=== PATIENT | male | born 1930 | race Caucasian/White ===

== ENCOUNTER 2017-07-18 13:13 | Inpatient (IN) | payer MEDICARE, OTHER ==
[~2017-07-18] VITALS: Ht 182.9 cm; Wt 75.0 kg
[~2017-07-18 13:13] MED LIST: CELE200C PO; CLON-529 PO; NIFE10CA2 PO; SCOP TD; ZOF4T PO; [UNRECOGNIZED DRUG - CODE] PO; [UNRECOGNIZED DRUG - CODE] PO
[2017-07-18] MEDS ORDERED: aspirin 81mg tab.chew PO ONE (13:25)
[2017-07-18] MEDS ORDERED: normal saline 1000ML IV soln IV ONE (13:35)
[2017-07-18] MEDS ORDERED: aspirin 81mg tab.chew ONE (13:45)
[2017-07-18] MEDS ORDERED: diltiazem-NS 100mg/100ml 100 ML IV ONE (13:48)
[2017-07-18] MEDS ORDERED: diltiazem 30mg tablet PO ONE (13:50)
[2017-07-18 14:13] LABS: BASOPHILS % (AUTO) 0.2 % (0-1); EOSINOPHILS % (AUTO) 0.3 % (0-6); HEMATOCRIT 42.2 % (42.0-52.0); HEMOGLOBIN 14.5 g/dl (14.0-17.9); LYMPHOCYTES # (AUTO) 0.7 X10'3 (1.1-4.8); LYMPHOCYTES % (AUTO) 9.5 % (21-51); MEAN CORPUSCULAR HEMOGLOBIN 34.1 PG (27.0-31.0); MEAN CORPUSCULAR HGB CONC 34.4 % (33.0-36.5); MEAN PLATELET VOLUME 9.8 FL (7.4-10.4); MONOCYTES # (AUTO) 0.5 X10'3 (0-0.9); MONOCYTES % (AUTO) 7.1 % (2-12); NEUTROPHILS # (AUTO) 6.2 X10'3 (1.8-7.7); NEUTROPHILS % (AUTO) 82.9 % (42-75); PLATELET COUNT 179 X10'3 (140-440); RED BLOOD COUNT 4.26 X10'6 (4.70-6.10); WHITE BLOOD COUNT 7.5 X10'3 (4.5-11.0)
[2017-07-18] MEDS ORDERED: metoprolol tartrate 1mg/ml inj IV ONE (14:30)
[2017-07-18 14:38] LABS: ANION GAP 13 (8-16); BILIRUBIN,TOTAL 1.4 MG/DL (0.1-1.0); BLOOD UREA NITROGEN 44 MG/DL (7-18); BUN/CREATININE RATIO 25.3 (5.4-32.0); CALCIUM 8.7 MG/DL (8.5-10.1); CHLORIDE 107 MMOL/L (99-107); CREATININE 1.74 MG/DL (0.60-1.10); GLUCOSE 104 MG/DL (70-104); MAGNESIUM 2.2 MG/DL (1.5-2.4); POTASSIUM 4.6 MMOL/L (3.5-5.1); SODIUM 142 MMOL/L (135-145); TOTAL CARBON DIOXIDE 21.9 MMOL/L (24-32); TOTAL PROTEIN 6.1 G/DL (6.4-8.2); eGFR 37 ML/MIN
[2017-07-18 14:39] LABS: ALANINE AMINOTRANSFERASE 66 U/L (12-78); ALBUMIN 2.6 G/DL (3.4-5.0); ALBUMIN/GLOBULIN RATIO 0.7 (1.1-1.5); ALKALINE PHOSPHATASE 96 IU/L (46-116); ASPARTATE AMINO TRANSFERASE 49 U/L (10-37)
[2017-07-18] MEDS ORDERED: ALPRAZolam 0.25mg tablet PO ONE (15:30)
[2017-07-18] MEDS ORDERED: LORazepam 2 mg/ml vial IV ONE (15:45)
[2017-07-18] MEDS ORDERED: LORazepam 2 mg/ml vial ONE (15:47)
[2017-07-18] MEDS ORDERED: OLANZapine **IM** 10 mg inj. IM ONE (16:10)
[2017-07-18] MEDS ORDERED: magnesium 2GM in 50ml NS 50 ML IV PRN (16:20)
[2017-07-18] MEDS ORDERED: potassium Cl 40MEQ/NS 500ml 500 ML IV PRN ×2 (16:20)
[2017-07-18] MEDS ORDERED: magnesium hydroxide 30ml (MOM) UD suspension PO PRN (16:20)
[2017-07-18] MEDS ORDERED: magnesium Cl slow-release 64mg tablet PO PRN (16:20)
[2017-07-18] MEDS ORDERED: OLANZapine **IM** 10 mg inj. IM PRN (16:20)
[2017-07-18] MEDS: K and/or MAG REPLACEMENT MC SCH (16:20)
[2017-07-18] MEDS ORDERED: potassium Cl 20 mEq SR tablet PO PRN ×2 (16:20)
[2017-07-18] MEDS ORDERED: ondansetron/PF 4mg/2ml inj IV PRN (16:20)
[2017-07-18] MEDS ORDERED: acetaminophen 325mg tablet PO PRN ×2 (16:20)
[2017-07-18] MEDS ORDERED: magnesium 4gm in 100ml NS 100 ML IV PRN (16:20)
[2017-07-18] MEDS ORDERED: mag hydrox/Alum hydrox/simeth 30ml oral suspension PO PRN (16:20)
[2017-07-18] MEDS: CefTRIAXone/D5W-Rocephin 1gm 50 ML IV SCH (19:00)
[2017-07-18] MEDS ORDERED: diltiazem CD 120mg capsule (once-daily) PO SCH (19:25)
[2017-07-18] MEDS: LORazepam 2 mg/ml vial IV PRN (19:25)
[2017-07-18] MEDS ORDERED: diltiazem 30mg tablet PO SCH (20:00)
[2017-07-18] MEDS ORDERED: temazepam 15mg capsule PO PRN (21:00)
[2017-07-18] MEDS: ALPRAZolam 0.5mg tablet PO SCH (21:00)
[2017-07-18] MEDS: diltiazem-NS 100mg/100ml 100 ML IV SCH (21:17)
[2017-07-19] MEDS: LORazepam 2 mg/ml vial IV PRN (01:38)
[2017-07-19 01:58] LABS: BASOPHILS % (AUTO) 0.1 % (0-1); EOSINOPHILS # (AUTO) 0.2 X10'3 (0-0.9); EOSINOPHILS % (AUTO) 2.4 % (0-6); HEMATOCRIT 40.4 % (42.0-52.0); HEMOGLOBIN 13.7 g/dl (14.0-17.9); LYMPHOCYTES # (AUTO) 0.9 X10'3 (1.1-4.8); LYMPHOCYTES % (AUTO) 8.8 % (21-51); MEAN CORPUSCULAR HEMOGLOBIN 33.7 PG (27.0-31.0); MEAN CORPUSCULAR HGB CONC 33.9 % (33.0-36.5); MEAN CORPUSCULAR VOLUME 99.3 FL (78-98); MEAN PLATELET VOLUME 9.6 FL (7.4-10.4); MONOCYTES # (AUTO) 0.8 X10'3 (0-0.9); MONOCYTES % (AUTO) 8.6 % (2-12); NEUTROPHILS # (AUTO) 7.7 X10'3 (1.8-7.7); NEUTROPHILS % (AUTO) 80.1 % (42-75); PLATELET COUNT 160 X10'3 (140-440); RED BLOOD COUNT 4.07 X10'6 (4.70-6.10); RED CELL DISTRIBUTION WIDTH 14.8 % (11.5-14.5); WHITE BLOOD COUNT 9.6 X10'3 (4.5-11.0)
[2017-07-19 02:16] LABS: ALANINE AMINOTRANSFERASE 58 U/L (12-78); ALBUMIN 2.3 G/DL (3.4-5.0); ALBUMIN/GLOBULIN RATIO 0.7 (1.1-1.5); ALKALINE PHOSPHATASE 86 IU/L (46-116); ANION GAP 8 (8-16); ASPARTATE AMINO TRANSFERASE 43 U/L (10-37); BILIRUBIN,TOTAL 1.3 MG/DL (0.1-1.0); BLOOD UREA NITROGEN 41 MG/DL (7-18); BUN/CREATININE RATIO 25.8 (5.4-32.0); CHLORIDE 110 MMOL/L (99-107); CREATININE 1.59 MG/DL (0.60-1.10); GLUCOSE 85 MG/DL (70-104); SODIUM 143 MMOL/L (135-145); TOTAL CARBON DIOXIDE 25.4 MMOL/L (24-32); TOTAL PROTEIN 5.5 G/DL (6.4-8.2); eGFR 41 ML/MIN
[2017-07-19] MEDS: K and/or MAG REPLACEMENT MC SCH (08:00)
[2017-07-19] MEDS: ALPRAZolam 0.5mg tablet PO SCH (08:00)
[2017-07-19] MEDS ORDERED: furosemide 20 MG/2 ML vial IV SCH (08:00)
[2017-07-19] MEDS: CefTRIAXone/D5W-Rocephin 1gm 50 ML IV SCH (11:55)
[2017-07-19] MEDS: diltiazem-NS 100mg/100ml 100 ML IV SCH (11:56)
[2017-07-19 13:00] VITALS: BP 120/67
[2017-07-19 14:00] VITALS: BP 124/60
[2017-07-19 15:00] VITALS: BP 115/73
[2017-07-19] MEDS ORDERED: MELO-102 (16:28)
[2017-07-19] MEDS ORDERED: olanzapine 10mg tablet PO SCH (18:00)
[2017-07-19 19:00] VITALS: BP 126/68
[2017-07-19] MEDS ORDERED: lactobacillus rhamnosus 10,000 MMU CELLS/CAPSULE PO SCH (20:00)
[2017-07-19] MEDS ORDERED: vancomycin/NS 1 GM ADD-VANTAGE 250 ML IV SCH (20:00)
[2017-07-19 23:00] VITALS: BP 129/87
[2017-07-20] MEDS: morphine 10mg/ml inj. IV PRN ×2 (01:08→22:52)
[2017-07-20] MEDS: LORazepam 2 mg/ml vial IV PRN ×2 (05:34→20:01)
[2017-07-20] MEDS: OLANZapine 5mg rapidly disint. tablet PO SCH (09:22)
[2017-07-20 22:00] VITALS: BP 110/60
[2017-07-21] MEDS: morphine 10mg/ml inj. IV PRN ×3 (08:32→21:59)
[2017-07-21] MEDS: OLANZapine 5mg rapidly disint. tablet PO SCH (08:32)
[2017-07-21 10:00] VITALS: BP 109/85
[2017-07-21] MEDS ORDERED: VANCOMYCIN LEVEL IV NR (19:30)
[2017-07-21 22:00] VITALS: BP 125/78
[2017-07-22] MEDS: OLANZapine 5mg rapidly disint. tablet PO SCH (08:00)
[2017-07-22 10:00] VITALS: BP 97/62
[2017-07-22] MEDS ORDERED: scopolamine 1.5mg patch.TD72 TD SCH (11:10)
[2017-07-22] MEDS: morphine 10mg/ml inj. IV PRN ×2 (12:51→21:38)
[2017-07-22 22:00] VITALS: BP 89/44
[2017-07-23] MEDS: LORazepam 2 mg/ml vial IV PRN ×3 (00:51→12:19)
[2017-07-23] MEDS: OLANZapine 5mg rapidly disint. tablet PO SCH (07:33)
[2017-07-23 10:00] VITALS: BP 114/62
[2017-07-23 22:00] VITALS: BP 67/43
[2017-07-24] MEDS: LORazepam 2 mg/ml vial IV PRN ×3 (01:29→11:03)
[2017-07-24] MEDS: OLANZapine 5mg rapidly disint. tablet PO SCH (08:36)
[2017-07-24] MEDS: morphine 10mg/ml inj. IV PRN ×2 (10:40→13:35)
[2017-07-24 22:00] VITALS: BP 78/55
[2017-07-25] MEDS: morphine 10mg/ml inj. IV PRN ×2 (03:12→09:25)
[2017-07-25] MEDS: OLANZapine 5mg rapidly disint. tablet PO SCH (09:25)
[2017-07-25] MEDS ORDERED: atropine sulfate 1% ophthalmic drops SL PRN (10:55)
== END 2017-07-25 13:00 | disposition expired | DRG 177 ==
LOC: ER 13:14 → ED HOLD 16:20 → EDBEDREQSVC 07-19 06:55 → PCU 3S 07-19 13:04 → ORTHO 4S 07-20 01:45
PROVIDERS: ADMIT Family Medicine; ATTEND Internal Medicine
DX: J69.0 Pneumonitis due to inhalation of food and vomit (principal); G93.41 Metabolic encephalopathy; I63.9 Cerebral infarction, unspecified; I13.0 Hypertensive heart and chronic kidney disease with heart failure and stage 1 through stage 4 chronic kidney disease, or unspecified chronic kidney disease; I50.9 Heart failure, unspecified; I48.91 Unspecified atrial fibrillation; N18.9 Chronic kidney disease, unspecified; E78.00 Pure hypercholesterolemia, unspecified; F02.80 Dementia in other diseases classified elsewhere, unspecified severity, without behavioral disturbance, psychotic disturbance, mood disturbance, and anxiety; G30.9 Alzheimer's disease, unspecified; I25.10 Atherosclerotic heart disease of native coronary artery without angina pectoris; M19.90 Unspecified osteoarthritis, unspecified site; R74.0 Nonspecific elevation of levels of transaminase and lactic acid dehydrogenase [LDH]; Z66 Do not resuscitate; Z51.5 Encounter for palliative care; Z95.1 Presence of aortocoronary bypass graft; Z88.2 Allergy status to sulfonamides; Z79.899 Other long term (current) drug therapy
CPT/HCPCS: 36415; 71045; 80053; 83605; 83735; 83880; 84145; 84484; 85025; 87040; 87070; 93005; 96361; 96365; 96372; 96375; 99285; A4315; A4333; A6212; A6213; J0696; J1940; J2060; J2270; J3370; J3490; J7030